=== PATIENT | female | born 1960 | race Caucasian/White ===

== ENCOUNTER 2018-02-02 08:45 | Day surgery (SDC) | payer BC ==
[~2018-02-02 08:45] MED LIST: LIDOCAINE HCL 1% MPF SOL ONE; PROPOFOL 500 MG/50 ML EMU IV ONE
[2018-02-02 10:33] VITALS: TEMP 98.4
[2018-02-02 10:58] VITALS: BP 153/91; PULSE 68; RESP 20; O2SAT 99
[2018-02-02 18:51] LABS: BASOPHILS % (AUTO) 1 % (0-3); EOSINOPHILS % (AUTO) 0 % (0-9); HEMATOCRIT 44 % (35-47); MEAN CORPUSCULAR HGB CONC 33.8 gm/dl (32.0-36.0); MEAN CORPUSCULAR VOLUME 86 fL (81-99); MONOCYTES % (AUTO) 6.4 % (0-12); NEUTROPHILS % (AUTO) 79.3 % (37-80)
[2018-02-02 19:04] LABS: CALCIUM 9.3 mg/dl (8.5-10.1); POTASSIUM 3.4 mMol/L (3.5-5.1)
[2018-02-02 21:01] LABS: APPEARANCE,URINE Clear; BILIRUBIN,URINE NEGATIVE (NEGATIVE); COLOR,URINE Yellow; GLUCOSE, URINE (UA) NEGATIVE (NEGATIVE); KETONES,URINE NEGATIVE (NEGATIVE); LEUKOCYTE ESTERASE ,URINE NEGATIVE (NEGATIVE); NITRATE,URINE NEGATIVE (NEGATIVE); OCCULT BLOOD,URINE TRACE INTACT (NEG-TRACE); UROBILINOGEN,URINE 0.2 (0.2-1.0 EU)
[2018-02-02 21:05] LABS: RBC,URINE 0-2 (0-3AV/HPF); WBC,URINE 0-2 (0-5AV/HPF)
== END 2018-02-02 11:30 | disposition home or self-care (01) ==
LOC: SURG 08:45
PROVIDERS: ATTEND Internal Medicine Gastroenterology
DX: R10.13 Epigastric pain (principal); R13.10 Dysphagia, unspecified; Q39.8 Other congenital malformations of esophagus; K22.2 Esophageal obstruction; K44.9 Diaphragmatic hernia without obstruction or gangrene; K31.7 Polyp of stomach and duodenum; G89.18 Other acute postprocedural pain; Z98.890 Other specified postprocedural states; R50.9 Fever, unspecified; R11.0 Nausea
CPT/HCPCS: 74177; 80053; 81001; 85025; 96365; 96374; 99001; 99284; J0461; Q9967; J2001; J2704

== ENCOUNTER 2018-05-03 06:26 | Day surgery (SDC) | payer BC ==
[2018-05-03] MEDS ORDERED: PROPOFOL 500 MG/50 ML EMU IV ONE (07:35)
[2018-05-03] MEDS ORDERED: LIDOCAINE HCL 1% MPF 30 SOL ONE (07:43)
[2018-05-03 08:29] VITALS: BP 154/84; PULSE 60; RESP 20; TEMP 97; O2SAT 99
== END 2018-05-03 09:00 | disposition home or self-care (01) ==
LOC: SURG 06:26
PROVIDERS: ATTEND Surgery
DX: Z12.11 Encounter for screening for malignant neoplasm of colon (principal); K57.32 Diverticulitis of large intestine without perforation or abscess without bleeding; D12.2 Benign neoplasm of ascending colon
CPT/HCPCS: 99001; J2001; J2704